=== PATIENT | male | born 1985 | race Two or more races ===

== ENCOUNTER 2018-11-16 10:05 | Emergency (ER) | payer OTHER ==
[2018-11-16] MEDS ORDERED: TETRACAINE HCL 0.5% OPH SOLN 4 ML OD ONE (10:21)
--- NOTE | 2018-11-16 10:22 | ER Document Report ---
ED Medical Screen (RME) - General Chief Complaint: Foreign Body in Eye Stated Complaint: WORK INJ/FB IN EYE Time Seen by Provider: 11/16/18 10:17 Notes: Patient is a 33-year-old male that presents to the emergency department for chief complaint of foreign body in eye. 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 ROS: Other than noted above, the 12 point review of systems was reviewed with the patient and were negative, all pertinent findings are included in the HPI. PHYSICAL EXAMINATION: Vital signs reviewed. GENERAL: Patient appears uncomfortable HEAD: Atraumatic, normocephalic. EYES: Right eye is severely injected, on white light exam, there is an obvious foreign body sitting essentially in the middle of the cornea over the pupil ENT: Nares patent NECK: Normal range of motion CV: Heart regular rate and rhythm LUNGS: No respiratory distress Musculoskeletal: Normal range of motion NEUROLOGICAL: Normal speech PSYCH: Normal mood, normal affect. MDM: Patient seen and examined for rapid initial assessment. Vital signs reviewed. A comprehensive ED assessment and evaluation of the patient, analysis of test results and completion of the medical decision making process will be conducted by additional ED providers. *Note is created using voice recognition software and may contain spelling, syntax or grammatical errors. TRAVEL OUTSIDE OF THE [place] IN LAST 30 DAYS: No - Related Data Allergies/Adverse Reactions: No Known Allergies Allergy (Verified 11/16/18 10:05) Physical Exam - Vital signs Vitals: Temp Pulse Resp BP Pulse Ox 97.9 F 68 16 152/74 H 99 11/16/18 10:14 11/16/18 10:14 11/16/18 10:14 11/16/18 10:14 11/16/18 10:14 Course - Vital Signs Vital signs: Temp Pulse Resp BP Pulse Ox 97.9 F 68 16 152/74 H 99 11/16/18 10:14 11/16/18 10:14 11/16/18 10:14 11/16/18 10:14 11/16/18 10:14
[2018-11-16] MEDS ORDERED: KETOROLAC TROMETHAMINE 0.45% 4 DROP/0.4 ML DROPERETTE OD SCH (12:00)
[2018-11-16] MEDS ORDERED: ERYTHROMYCIN 0.5% OPH OINTMENT 3.5 GM TUBE OD ONE (12:01)
[2018-11-16] MEDS ORDERED: HYDROCODONE/ACETAMINOPHEN 5-325 MG (6 TAB/ER DISP) PO PRN (12:04)
--- NOTE | 2018-11-16 12:08 | ER Document Report ---
ED General - General Chief Complaint: Foreign Body in Eye Stated Complaint: WORK INJ/FB IN EYE Time Seen by Provider: 11/16/18 10:17 Primary Care Provider: BHARGAVI GROSSMAN MD [ACTIVE STAFF] - 11/18/18 Mode of Arrival: Ambulatory Information source: Patient Notes: Patient is a 33-year-old male that presents to the emergency department for chief complaint of foreign body in eye. 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 Reports intense pain since that time, photophobia. Patient does not wear contacts or glasses. He did try to irrigate his eye at home without relief. TRAVEL OUTSIDE OF THE [place] IN LAST 30 DAYS: No - HPI Onset: Yesterday Onset/Duration: Sudden Quality of pain: Throbbing Severity: Severe Associated symptoms: denies: Fever, Headache Exacerbated by: Denies Relieved by: Denies Similar symptoms previously: No Recently seen / treated by doctor: No - Related Data Allergies/Adverse Reactions: No Known Allergies Allergy (Verified 11/16/18 10:05) Past Medical History - General Information source: Patient - Social History Smoking Status: Never Smoker Chew tobacco use (# tins/day): No Frequency of alcohol use: None Drug Abuse: None Lives with: Family Family History: Reviewed & Not Pertinent Patient has suicidal ideation: No Patient has homicidal ideation: No - Past Medical History Cardiac Medical History: Reports: Hx Heart Attack - x1 Renal/ Medical History: Denies: Hx Peritoneal Dialysis Review of Systems - Review of Systems Notes: REVIEW OF SYSTEMS: CONSTITUTIONAL : Denies fever, chills, or sweats. Denies recent illness. Bassam es weight loss, recent hospitalizations. EENT: Denies sore throat, oral lesions, difficulty swallowing. CARDIOVASCULAR: Denies chest pain. Denies palpitations. Denies lower extremity edema. RESPIRATORY: Denies cough. Denies shortness of breath, wheezing. GASTROINTESTINAL: Denies abdominal pain or distention. Denies nausea, vomiting, or diarrhea. Denies blood in vomitus, stools, or per rectum. Denies black, tarry stools. Denies constipation. GENITOURINARY: Denies difficulty urinating, painful urination, frequency, blood in urine, testicular pain or penile discharge. MUSCULOSKELETAL: Denies back or neck pain or stiffness. Denies joint pain or swelling. SKIN: Denies rash, lesions or sores. HEMATOLOGIC : Denies easy bruising or bleeding. LYMPHATIC: Denies swollen glands. NEUROLOGICAL: Denies confusion or altered mental status. Denies loss of consciousness. Denies dizziness or lightheadedness. Denies headache. Denies weakness or paralysis. Denies problems difficulty with ambulation, slurred speech. Denies sensory loss, numbness, or tingling. Denies seizures. PSYCHIATRIC: Denies anxiety or stress. Denies depression, suicidal ideation, or Physical Exam - Vital signs Vitals: Temp Pulse Resp BP Pulse Ox 97.9 F 68 16 152/74 H 99 11/16/18 10:14 11/16/18 10:14 11/16/18 10:14 11/16/18 10:14 11/16/18 10:14 - Notes Notes: PHYSICAL EXAMINATION: GENERAL: Well-appearing, well-nourished and in no acute distress. HEAD: Atraumatic, normocephalic. EYES: Pupils equal round and reactive to light, extraocular movements intact, sclera anicteric, conjunctiva are normal. Patient does have a pinpoint area in the center of his cornea which is dark in color. No floor seen uptake. No evidence of corneal abrasion. On slit-lamp foreign body was better visualized and foreign body removal was attempted and a small amount of black substance was removed but there is still residual. ENT: Nares patent, oropharynx clear without exudates. Moist mucous membranes. NECK: Normal range of motion, supple without lymphadenopathy LUNGS: Breath sounds clear to auscultation bilaterally and equal. No wheezes rales or rhonchi. HEART: Regular rate and rhythm without murmurs ABDOMEN: Soft, nontender, nondistended abdomen. No guarding, no rebound. No masses appreciated. Musculoskeletal: Normal range of motion, no pitting or edema. No cyanosis. NEUROLOGICAL: Cranial nerves grossly intact. Normal speech, normal gait. Normal sensory, motor exams PSYCH: Normal mood, normal affect. SKIN: Warm, Dry, normal turgor, no rashes or lesions noted. Course - Re-evaluation Re-evalutation: 11/18/18 10:32 33-year-old male presents with a foreign body to his right eye. No evidence of corneal abrasion. Foreign body is noted to be at the 7 o'clock position of his right cornea. A small amount of the foreign body was able to be removed with a 25-gauge needle but there is still some remaining. Patient was given erythromycin, Toradol eyedrops and advised that he must be seen by ophthalmology. This is a workers comp case which was reported so patient should not have any difficulty following up. - Vital Signs Vital signs: Temp Pulse Resp BP Pulse Ox 98.1 F 74 18 147/84 H 100 11/16/18 12:27 11/16/18 12:27 11/16/18 12:27 11/16/18 12:27 11/16/18 12:27 Procedures - Eye Procedure Right Time completed: 10:33 Foreign body removal: Right Alcaine Drops Administered: Yes Fluorescein applied: Right Antibiotic Oinment/Drps Admin: Right eye Slit lamp used: Yes Notes: 11/18/18 10:33 No evidence of corneal abrasion. Foreign body noted. Partial removal of the foreign body was obtained but residual is still present. Discharge - Discharge Clinical Impression: Elevated blood pressure reading Foreign body, intraocular, right eye Qualifiers: Encounter type: initial encounter Qualified Code(s): S05.51XA - Penetrating wound with foreign body of right eyeball, initial encounter Condition: Good Disposition: HOME, SELF-CARE Instructions: Corneal Foreign Body ([facility]) Additional Instructions: We were not able to fully remove the foreign body that is in your right eye. It is imperative that you be seen by an eye doctor. This should be done within the next 24-48 hours. Prescriptions: Erythromycin Base [Erythromycin Oph 1 gm Oint Ud] 1 applic OP Q6H #1 tube Forms: Elevated Blood Pressure, Return to Work Referrals: BHARGAVI GROSSMAN MD [ACTIVE STAFF] - 11/18/18
[2018-11-16] MEDS ORDERED: KETOROLAC TROMETHAMINE 0.45% 4 DROP/0.4 ML DROPERETTE OD ONE (12:15)
[2018-11-16 12:28] VITALS: BP 147/84
== END 2018-11-16 12:32 | disposition home or self-care (01) ==
LOC: ER 10:05
DX: S05.51XA Penetrating wound with foreign body of right eyeball, initial encounter (principal); X58.XXXA Exposure to other specified factors, initial encounter; Y93.89 Activity, other specified; Y99.0 Civilian activity done for income or pay; R03.0 Elevated blood-pressure reading, without diagnosis of hypertension
CPT/HCPCS: 99283; 65205; J3490 ×2